=== PATIENT | female | born 1935 | race Caucasian/White ===

== ENCOUNTER 2016-07-06 09:54 | Emergency (ER) | payer MEDICARE ==
--- NOTE | 2016-07-06 11:20 | RAD ---
Exam: Two-view chest COMPARISON: 10/29/2013 INDICATION: Left lateral rib pain after fall this morning. FINDINGS: PA and lateral views of the chest were obtained. Cardiac silhouette is within normal limits and stable. There is stable ectasia of the descending thoracic aorta. Small hiatal hernia is noted. Lungs are well-inflated. There is no focal airspace disease or pneumothorax. There is minor blunting of the left costophrenic angle which could reflect a tiny pleural effusion. There is minimal irregularity in the region of the left anterolateral sixth and seventh ribs which could reflect nondisplaced fractures. Mild compression deformity of T12 is noted and unchanged. IMPRESSION: Possible nondisplaced fractures involving the left anterolateral sixth and seventh ribs, correlate for pain in this location. Tiny left-sided pleural effusion. No pneumothorax.
[2016-07-06] MEDS ORDERED: MORPHINE SULFATE 2 MG/ML SYRINGE ONE (12:21)
[2016-07-06] MEDS ORDERED: MORPHINE SULFATE 4 MG/ML SYRINGE ONE (12:21)
[2016-07-06] MEDS ORDERED: DIPHTH,PERTUSS(ACELL),TET VAC 0.5 ML VIAL IM V ONE (13:04)
== END 2016-07-06 13:52 | disposition home or self-care (01) ==
LOC: ED 09:54
DX: S22.42XA Multiple fractures of ribs, left side, initial encounter for closed fracture (principal); W01.0XXA Fall on same level from slipping, tripping and stumbling without subsequent striking against object, initial encounter; S00.212A Abrasion of left eyelid and periocular area, initial encounter; I25.2 Old myocardial infarction; K21.9 Gastro-esophageal reflux disease without esophagitis; E78.5 Hyperlipidemia, unspecified; I10 Essential (primary) hypertension; Z79.899 Other long term (current) drug therapy; Z88.5 Allergy status to narcotic agent; Z23 Encounter for immunization
CPT/HCPCS: 90715; 71020; 94010; 90471; 99283 ×2; 96372 ×2; J2270 ×2